=== PATIENT | male | born 1985 | race Caucasian/White ===

== ENCOUNTER 2019-05-30 07:27 | Day surgery (SDC) | payer BC ==
[~2019-05-30 07:27] MED LIST: DEXT20CA7 PO; HYDROmorphone 2 MG/ML VIAL IV PRN; IBUP-1007 PO; IV RINGERS,LACTATED 1000ML 1,000 ML IV SCH; LEXAPRO20 MG PO; LIDOCAINE 1% PF 2 ML VIAL. ID PRN; MELA3TAB19 PO; MORPHINE SULFATE 2 MG/ML VIAL. IV PRN; ONDANSETRON PF 4 MG/2 ML VIAL. IV PRN; PROCHLORPERAZINE 10 MG/2 ML VIAL. IV PRN; fentaNYL PF VIAL 100 MCG/2 ML VIAL IV PRN
[2019-05-30] MEDS ORDERED: ceFAZolin SODIUM 3 GM in IV DEXTROSE 5% 100ML 100 ML IV PRN (08:00)
[2019-05-30] MEDS ORDERED: ACETAMINOPHEN 500 MG TABLET PO ONE (08:00)
[2019-05-30] MEDS ORDERED: BUPIVACAINE-EPI 0.25%-1:200000 MPF 30 ML VIAL. IJ ONE (08:00)
[2019-05-30] MEDS ORDERED: ROCURONIUM 50 MG/5 ML VIAL. ONE (08:38)
[2019-05-30] MEDS ORDERED: SUCCINYLCHOLINE 200 MG/10 ML VIAL. ONE (08:38)
[2019-05-30] MEDS ORDERED: PROPOFOL 20 ML IV ONE ×2 (08:38→09:11)
[2019-05-30] MEDS ORDERED: LIDOCAINE 2% PF 5 ML VIAL. ONE (08:39)
[2019-05-30] MEDS ORDERED: fentaNYL PF VIAL 100 MCG/2 ML VIAL ONE (08:39)
[2019-05-30] MEDS ORDERED: DEXAMETHASONE SOD PHOS 4 MG/ML VIAL ONE (09:11)
[2019-05-30] MEDS ORDERED: DESFLURANE 31 TO 60 MINUTES IH ONE (09:11)
[2019-05-30] MEDS ORDERED: ONDANSETRON PF 4 MG/2 ML VIAL. ONE (09:34)
[2019-05-30] MEDS ORDERED: NEOSTIGMINE METHYLSULFATE 5 MG/5 ML SYRINGE. ONE (09:35)
[2019-05-30] MEDS ORDERED: GLYCOPYRROLATE 1 MG/5 ML VIAL. ONE (09:35)
--- NOTE | 2019-05-30 10:15 | PDOC4 ---
Operative Note Operative Note Date: 05/30/2019 Preoperative diagnosis: Pilonidal cyst Postoperative diagnosis: Same Procedure: Pilonidal cystectomy Specimen: Pilonidal cyst Surgeon: Jey Dictation: Patient is a 33-year-old male who's had an episode of a pilonidal cyst abscess with I&D drainage and has had recurrent episodes of drainage. Procedure of pilonidal cystectomy was explained to the patient in detail risk benefits were also discussed including bleeding infection wound separation alternatives to this procedure also discussed with the patient who seemed to understand and gave both verbal and written consent to have the procedure performed. Patient was taken to the operating room placed in supine position general anesthesia was initiated once patient was sleep and intubated was then repositioned in a prone positioning. His buttocks was prepped and draped usual sterile fashion using ChloraPrep. An area around the pilonidal cyst openings were injected with quarter percent Marcaine with epinephrine and elliptical incision was used and incorporated all the pilonidal cyst openings this was carried down through the subcutaneous tissue using electrocautery providing hemostasis down to the fascia, the subcutaneous tissue completely excised and sent for pathology. The wound was undermined to allow for mobility. The wound was then closed in several layers deep layer running 0 Vicryl subcutaneous layer running 3-0 Vicryl and the skin was reapproximated with horizontal mattress sutures of 2-0 nylon suture. Wound was dressed with 4 x 4's and Medipore tape. Patient was repositioned in the supine positioning awakened and extubated in the operating room taken to recovery in stable condition all sponge instrument needle counts listed as correct estimated blood loss 10 mL. RAJIV ALEXANDER MD May 30, 2019 10:15
--- NOTE | 2019-05-30 10:17 | DISCH ---
DISCHARGE INSTRUCTIONS Condition on Discharge Condition on Discharge: Stable Activity After Discharge Activity Instructions for Disc: Avoid exertion Other activity instructions: no sitting on hard surfaces for 2 weeks Diet after Discharge Diet after Discharge: Regular Wound Incision Care Other wound/incision instructi: May shower in 24 hours Contacting the after DC Call your doctor for: If your condition worsens Follow-Up Follow up with: Dr. Alexander in 2 weeks RAJIV ALEXANDER MD May 30, 2019 10:17
[2019-05-30] MEDS ORDERED: oxyCODONE/APAP 5/325 1 TAB TABLET PO ONE ×2 (10:30)
[2019-05-30] MEDS ORDERED: OXYC1TAB15 PO (10:45)
[2019-05-30 11:01] VITALS: BP 134/70
--- NOTE | 2019-06-02 16:06 | PATHOLOGY ---
[facility] Accession Number: [id number] . 01 Material submitted: . buttock - PILONIDAL CYST . 01 Clinical history: . Pilonidal cyst . 02 Diagnosis: Segments of skin and subcutaneous tissue, pilonidal cystectomy: - Pilonidal abscess/sinus. . ([facility]:mm; 06/02/2019) [facility]/06/02/2019 . 02 Comment: There is no evidence of malignancy. . ([facility]; 06/02/2019) . 02 Electronically signed: . Kahlil Moncada MD, Pathologist NPI- [id number] . 01 Gross description: . The specimen is received in formalin, labeled "Estrada Sarmiento pilonidal cyst", is an unoriented ellipse of ac skin measuring 12.5 x 1.0 cm with underlying subcutaneous tissue excised to a depth of 2.2 cm. The skin surface has a groove running along the long axis measuring 9.0 cm in length. The specimen is serially sectioned to reveal a sinus tract, contiguous with the groove and approximately measuring 5.2 cm in length and involving the closest tip. Bevel Polisher tissue is submitted in A1-A2.(A1 = involved tip). Also received is an irregular fragment of necrotic skin with underlying soft tissue measuring 3.8 x 1.7 x 1.0 cm. Representatively submitted in A3. ([facility]; 05/30/2019) [facility] . 02 Pathologist provided ICD-10: L05.91 . 02 CPT . 556235 Specimen Comment: A courtesy copy of this report has been sent to Specimen Comment: [phone]. Specimen Comment: Report sent to Performed at: [address] [place] [address] [id number] [facility] [address], [place], [place] [id number] MD Abad Traylor MD Phone: [phone] Performed at: [address] [id number] MD Kahlil Moncada MD Phone: [phone]
== END 2019-05-30 11:40 | disposition home or self-care (01) ==
LOC: SURG 07:27
PROVIDERS: ATTEND Surgery
DX: L05.91 Pilonidal cyst without abscess (principal); F17.210 Nicotine dependence, cigarettes, uncomplicated; Z98.890 Other specified postprocedural states; Z72.89 Other problems related to lifestyle
CPT/HCPCS: 11772; 88304; A7015; J0330; J1100; J2001; J2405; J2704; J2710; J3010; J3490